=== PATIENT | female | born 1950 ===

== ENCOUNTER → 2020-06-21 08:00 | Outpatient (CLI) | payer OTHER ==
[~2020-06-21 08:00] MED LIST: GLIMEPIRIDE2 M1 PO
== END | disposition home or self-care (01) ==
LOC: LAB 08:00 → EDSTATUS 06-22 09:00 → SURH 06-22 09:00
PROVIDERS: ATTEND Orthopaedic Surgery
DX: Z20.828 Contact with and (suspected) exposure to other viral communicable diseases (principal); M16.11 Unilateral primary osteoarthritis, right hip; I10 Essential (primary) hypertension